=== PATIENT | male | born 2005 | race African-American/Black ===

== ENCOUNTER 2025-02-20 09:07 | Emergency (ER) | payer MEDICAID, OTHER ==
[~2025-02-20] VITALS: Ht 175.3 cm; Wt 56.0 kg
--- NOTE | 2025-02-20 09:52 | ED.PDOC ---
General HPI Comments 19 year old male presents to the ED with chief complaint of penile discharge and pain. Patient reports that he has been experiencing penile discharge for the past 5 days along with associated penile swelling and pain for the past 2 days. Patient relays that his pain is an 8/10 and he believes this all started due to poor hygiene. Patient denies any fever, chills, penile sores, dysuria, or hematuria. Chief Complaint: Penile Problem Time Seen by MD: 09:49 Reviewed notes: Nurses Notes, Medications, Allergies Allergies: Coded Allergies: NO KNOWN ALLERGIES (Unverified , 02/20/25) Information Source: Patient Mode of Arrival: Ambulatory Severity: Moderate Inability to void: None Timing: Days Duration: Since onset Prehospital treatment: None Onset: Spontaneous History of: None Location: None Penile discharge: White Modifying factors: None associated signs and symptoms: Penile Discharge Past Medical History PAST MEDICAL HISTORY: Denies Surgical History: Denies all surgeries Family History Family History: Reviewed,noncontributory to illness Social History Smoker: Non-Smoker Alcohol: Denies ETOH Use Drugs: Denies Drug Use Lives In: Home Constitutional: denies: chills, diaphoresis, fatigue, fever, malaise, sweats, weakness, others EENTM: denies: blurred vision, double vision, ear bleeding, ear discharge, ear drainage, ear pain, ear ringing, eye pain, eye redness, hearing loss, mouth pain, mouth swelling, nasal discharge, nose bleeding, nose congestion, nose pain, photophobia, tearing, throat pain, throat swelling, voice changes, others Respiratory: denies: cough, hemoptysis, orthopnea, SOB at rest, shortness of b reath, SOB with excertion, stridor, wheezing, others Cardiovascular: denies: chest pain, dizzy spells, diaphoresis, Dyspnea on exertion, edema, irregular heart beat, left arm pain, lightheadedness, palpitations, PND, syncope, others Gastrointestinal: denies: abdomen distended, abdominal pain, blood streaked bowels, constipated, diarrhea, dysphagia, difficulty swallowing, hematemesis, melena, nausea, poor appetite, poor fluid intake, rectal bleeding, rectal pain, vomiting, others Genitourinary: reports: penile discharge, pain, testicle swelling; denies: burning, dysuria, flank pain, frequency, hematuria, incontinence, penile sore, t esticle pain, urgency, others Neurological: denies: dizziness, fainting, headache, left sided numbness, left sided weakness, numbness, paresthesia, pre-existing deficit, right sided numbness, right sided weakness, seizure, speech problems, tingling, tremors, weakness, others Musculoskeletal: denies: back pain, gout, joint pain, joint swelling, muscle pain, muscle stiffness, neck pain, others Integumetry: denies: bruises, change in color, change in hair/nails, dryness, laceration, lesions, lumps, rash, wounds, others Allergic/Immunocompromised: denies: Difficulty Healing, Frequent Infections, Hives, Itching, others Hematologic/Lymphatic: denies: anemia, blood clots, easy bleeding, easy bruising, swollen glands, others Endocrine: denies: excessive hunger, excessive sweating, excessive thirst, excessive urination, flushing, intolerance to cold, intolerance to heat, unexplained weight gain, unexplained weight loss, others Psychiatric: denies: anxiety, bipolar disorder, depression, hopeless, panic disorder, schizophrenia, sleepless, suicidal, others All Other Systems: Reviewed and Negative Physical Exam General Appearance: Mild Distress, Normal HEENT: Normal ENT Inspection, PERRL/EOMI Neck: Full Range of Motion, Non-Tender, Normal, Normal Inspection Respiratory: Chest Non-Tender, Lungs Clear, No Accessory Muscle Use, No Respiratory Distress, Normal Breath Sounds Cardiovascular: No Edema, No JVD, No Murmur, No Gallop, Normal Peripheral Pulses, Regular Rate/Rhythm Breast Exam: Deferred Gastrointestinal: No Organomegaly, Non Tender, No Pulsatile Mass, Normal Bowel Sounds, Soft Genitalia: Foreskin, Penis, Other (Purulent discharge and painful) Pelvic: Deferred Rectal: Deferred Extremities: No calf tenderness, Normal capillary refill, Normal inspection, Normal range of motion, Non-tender, No pedal edema Musculoskeletal : Apperance: Normal Neurologic: Alert, stage manager II-XII nml as Tested, No Motor Deficits, Normal Affect, Normal Mood, No Sensory Deficits Cerebellar Function: Normal Reflexes: Normal Skin: Dry, Normal Color, Warm Peripheral Pulses: 1+ carotid (R), 1+ carotid (L) Lymphatic: No Adenopathy Was a procedure done? Was a procedure done?: No Differential Diagnosis Kidney stone (Female): N/A Kidney stone (Male): Urinary tract infection Penile/Scrotal: STD, UTI Urinary Problem (Male): Urethritis, UTI Urinary Problem (Female): N/A X-Ray, Labs, Meds, VS Vital Signs Date Time Temp Pulse Resp B/P (MAP) Pulse Ox O2 Delivery O2 Flow Rate FiO2 02/20/25 09:53 94 16 99 Room Air 02/20/25 09:53 97.8 94 16 124/88 (100) 99 97.8 02/20/25 09:17 97.8 94 16 124/88 (100) 99 97.8 Lab Test 02/20/25 09:16 Range/Units Chlamydia trachomatis (RAMIN) Pending Neisseria gonorrhoeae (RAMIN) Pending Current Medications Medications (Trade) Dose Ordered Sig/Abigail Route Start Time Stop Time Status Last Admin Ceftriaxone Sodium (Rocephin W Lidocaine IM) 1 gm ONCE ONCE IM 02/20/25 10:30 02/20/25 10:32 DC 02/20/25 10:51 X-Ray, Labs, Meds, VS Comment Course in the emergency department eventful patient came complaining of penile discharge swelling and painful Urine GC and urine chlamydia pending Patient received Rocephin 1 g IM You will be discharged with doxycycline and we will need to call for the results is about a week Time of 1ST Reevaluation: 10:49 Reevaluation 1ST: Unchanged Consultation: PCP Patient Education/Counseling: Diagnosis, Treatment, Prognosis, Need For Follow Up Family Education/Counseling: Diagnosis, Treatment, Prognosis, Need For Follow Up, No Family Present Departure 1 Departure Time of Disposition: 12:47 Impression: Primary Impression: Acute gonococcal urethritis Additional Impression: Chlamydia infection Disposition: 01 HOME / SELF CARE / HOMELESS Condition: Good Additional Instructions: Push fluids and follow up with your PCP The uterus results of your labs we will be here in a week e-Prescriptions Doxycycline Hyclate (DOXYCYCLINE HYCLATE) 100 Mg Tab 1 TAB PO BID for 10 Days, #20 TAB Prov: DEBI TRAORE MD 02/20/25 Discharged With: Self Critical Care Note Critical Care Time?: No Stability Stability form required: No Heart Score Heart Score: Heart Score Response (Comments) Value History N/A 0 EKG N/A 0 Age <45 0 Risk Factors No known risk factors 0 Troponin N/A 0 Total 0 I personally scribed for DEBI TRAORE MD ([email or web address]) on 02/20/25 at 09:51. Electronically submitted by Rosalio Webster ([email or web address]). DEBI TRAORE MD Feb 20, 2025 09:51
[2025-02-20] MEDS: cefTRIAXone W LIDOCAINE 1 GM IM IM ONE (10:51)
[2025-02-20] MEDS ORDERED: DOXY-286 PO (12:48)
[2025-02-20 12:54] VITALS: BP 115/58; PULSE 56; RESP 16; TEMP 97.8; O2SAT 99
== END 2025-02-20 13:17 | disposition home or self-care (01) ==
LOC: ER 09:07
DX: A54.01 Gonococcal cystitis and urethritis, unspecified (principal); A74.9 Chlamydial infection, unspecified
CPT/HCPCS: 87491; 87591; 96372; 99283; J0696